=== PATIENT | female | born 1970 | race Caucasian/White ===

== ENCOUNTER 2016-04-30 19:36 | Emergency (ER) | payer OTHER ==
[~2016-04-30] VITALS: Ht 162.6 cm; Wt 84.1 kg
[~2016-04-30 19:36] MED LIST: ALLOPURINOL100 MG PO; AMLODIPINE BESYL5 MG PO; APRESOLINE25 MG PO; ASPIR 8181 M1 PO; ATORVASTATIN CA10 MG PO; BUMETANIDE2 MG PO; CALCITRIOL0.25 MCG PO; CARVEDILOL25 MG PO; CELEXA10 MG PO; CLONIDINE HCL0.1 MG PO; CLOPIDOGREL75 MG PO; COMBIVENT RESPIM4 GM IH; FUROSEMIDE40 MG PO; IMDUR60 MG PO; LASIX40 MG PO; LEVOTHYROXINE200 MC1 PO; METFORMIN HCL500 MG PO; NEURONTIN300 MG PO; NOVOLIN,HU100 UNITS/ SC; NOVOLOG 10100 UNITS/ SQ; SYNTHROID200 MCG PO; SYNTHROID25 MCG PO; VITAMIN D5000 UNI1 PO
[2016-04-30 20:26] LABS: ADD MIUA? YES; BILIRUBIN NEGATIVE; BLOOD TRACE; COLOR YELLOW ((YELLOW)); GLUCOSE (STRIP) 500; KETONES NEGATIVE; LEUKOCYTES NEGATIVE; NITRITE NEGATIVE; PH, URINE 6.5 (5-8); PROTEIN (STRIP) >=300; SPECIFIC GRAVITY 1.013 (1.000-1.030); UROBILINOGEN 0.2 MG/DL (0.2-1.0)
[2016-04-30 20:43] LABS: BACTERIA RARE; CASTS PRESENT /LPF; CRYSTALS NONE SEEN; EPITHELIAL CELLS RARE; HYALINE CASTS 0-5 /LPF; MUCUS RARE; RED BLOOD CELLS 0-5 /HPF (0-5); UCUL ADDED? NO; WHITE BLOOD CELLS 0-5 /HPF (0-5)
[2016-04-30] MEDS ORDERED: PERCOCET 5/31 TABLET PO (23:04)
[2016-04-30] MEDS ORDERED: VALIUM5 MG PO (23:04)
[2016-04-30 23:14] VITALS: BP 194/89
== END 2016-04-30 23:16 | disposition home or self-care (01) ==
LOC: RME 19:36 → EME 19:36 → RME 23:16
DX: M51.16 Intervertebral disc disorders with radiculopathy, lumbar region (principal); Z91.81 History of falling; I25.2 Old myocardial infarction; I25.10 Atherosclerotic heart disease of native coronary artery without angina pectoris; Z98.61 Coronary angioplasty status
CPT/HCPCS: 72131; 81003; 99281; 99284; J1170

== ENCOUNTER 2016-05-14 16:56 | Emergency (ER) | payer OTHER ==
[~2016-05-14] VITALS: Ht 160 cm; Wt 84.2 kg
[~2016-05-14 16:56] MED LIST changes: +PERCOCET 5/31 TABLET PO; +VALIUM5 MG PO
[2016-05-14] MEDS ORDERED: STOOL SOFTENER240 MG PO (19:02)
[2016-05-14] MEDS ORDERED: FLEXERIL10 MG PO (19:02)
[2016-05-14] MEDS ORDERED: PERCOCET 5/31 TABLET PO (19:02)
[2016-05-14 19:21] VITALS: BP 132/82
== END 2016-05-14 19:25 | disposition home or self-care (01) ==
LOC: EXP 16:56 → EME 16:56 → EXP 19:25
DX: M54.5 Low back pain (principal); G89.29 Other chronic pain; M48.06 Spinal stenosis, lumbar region; E11.9 Type 2 diabetes mellitus without complications; I25.10 Atherosclerotic heart disease of native coronary artery without angina pectoris; Z79.4 Long term (current) use of insulin; Z95.5 Presence of coronary angioplasty implant and graft; Z79.82 Long term (current) use of aspirin
CPT/HCPCS: 99281; 99283